=== PATIENT | female | born 1995 | race Caucasian/White ===

== ENCOUNTER → 2017-01-19 | Outpatient (REF) | payer OTHER | LOC: M LAB REF 17:04 | PROVIDERS: ATTEND Advanced Practice Midwife | DX: Z11.3 Encounter for screening for infections with a predominantly sexual mode of transmission (principal) ==

== ENCOUNTER → 2018-02-22 | Outpatient (REF) | payer OTHER ==
[2018-02-22 15:37] LABS: CHLAMYDIA DNA AMPLIFICATION NEGATIVE (NEGATIVE); GC DNA AMPLIFICATION NEGATIVE (NEGATIVE)
== END ==
LOC: M LAB REF 13:32
DX: Z12.4 Encounter for screening for malignant neoplasm of cervix (principal)

== ENCOUNTER → 2018-05-05 | Outpatient (REF) | payer OTHER | LOC: M LAB REF 17:06 | DX: R87.613 High grade squamous intraepithelial lesion on cytologic smear of cervix (HGSIL) (principal) | CPT/HCPCS: 88305 ==

== ENCOUNTER → 2018-10-10 | Outpatient (REF) | payer OTHER ==
[2018-10-10 20:33] LABS: CHLAMYDIA DNA AMPLIFICATION NEGATIVE (NEGATIVE); GC DNA AMPLIFICATION NEGATIVE (NEGATIVE)
== END ==
LOC: M LAB REF 17:04
PROVIDERS: ATTEND Specialist
DX: Z11.3 Encounter for screening for infections with a predominantly sexual mode of transmission (principal); R87.613 High grade squamous intraepithelial lesion on cytologic smear of cervix (HGSIL)

== ENCOUNTER → 2018-12-21 | Outpatient (REF) | payer OTHER ==
[2018-12-21 15:19] LABS: INFLUENZA A AMPLIFICATION NEGATIVE (NEGATIVE); INFLUENZA B AMPLIFICATION NEGATIVE (NEGATIVE)
== END ==
LOC: M LAB REF 14:17
PROVIDERS: ATTEND Physician Assistant Medical
DX: J11.1 Influenza due to unidentified influenza virus with other respiratory manifestations (principal)

== ENCOUNTER → 2019-07-17 | Outpatient (REF) | payer OTHER ==
[2019-07-17 19:51] LABS: CHLAMYDIA DNA AMPLIFICATION NEGATIVE (NEGATIVE); GC DNA AMPLIFICATION NEGATIVE (NEGATIVE)
== END ==
LOC: M LAB REF 17:14
PROVIDERS: ATTEND Specialist
DX: Z11.3 Encounter for screening for infections with a predominantly sexual mode of transmission (principal)

== ENCOUNTER → 2019-10-23 | Outpatient (REF) | payer OTHER ==
[2019-10-23 22:06] LABS: CHLAMYDIA DNA AMPLIFICATION NEGATIVE (NEGATIVE); GC DNA AMPLIFICATION NEGATIVE (NEGATIVE)
== END ==
LOC: M SFHCWAGY 16:48
PROVIDERS: ATTEND Specialist
DX: Z20.2 Contact with and (suspected) exposure to infections with a predominantly sexual mode of transmission (principal)

== ENCOUNTER → 2020-02-07 | Outpatient (REF) | payer OTHER ==
[2020-02-07 21:49] LABS: CHLAMYDIA DNA AMPLIFICATION POSITIVE (NEGATIVE); GC DNA AMPLIFICATION NEGATIVE (NEGATIVE)
== END ==
LOC: M LAB REF 16:02
PROVIDERS: ATTEND Physician Assistant
DX: Z20.2 Contact with and (suspected) exposure to infections with a predominantly sexual mode of transmission (principal)

== ENCOUNTER → 2020-03-05 | Outpatient (REF) | payer OTHER ==
[2020-03-07 17:35] LABS: HEPATITIS C VIRUS ABY INDEX 0.2 INDEX (<0.8); HIV 1&2 SCREEN CENTAUR NEGATIVE (NEGATIVE)
== END ==
LOC: M PLALAB 12:43
PROVIDERS: ATTEND Obstetrics & Gynecology
DX: Z36.89 Encounter for other specified antenatal screening (principal); Z82.0 Family history of epilepsy and other diseases of the nervous system; Z3A.01 Less than 8 weeks gestation of pregnancy

== ENCOUNTER → 2020-03-13 | Outpatient (REF) | payer OTHER ==
[2020-03-13 15:16] LABS: HEMATOCRIT 42.1 % (36.0-47.0); HEMOGLOBIN 14.3 g/dl (12.0-15.5); MEAN CORPUSCULAR HEMOGLOBIN 32.1 pg (27.0-33.0); MEAN CORPUSCULAR VOLUME 94.4 fl (80.0-96.0); PLATELET COUNT, AUTOMATED 228 10^3/uL (150-450); RED BLOOD COUNT 4.46 10^6/uL (4.00-5.40); WHITE BLOOD COUNT 10.7 10^3/uL (4.0-10.0)
[2020-03-13 17:09] LABS: CHLAMYDIA DNA AMPLIFICATION NEGATIVE (NEGATIVE); GC DNA AMPLIFICATION NEGATIVE (NEGATIVE)
== END ==
LOC: M PLALAB 14:49
PROVIDERS: ATTEND Obstetrics & Gynecology
DX: Z3A.01 Less than 8 weeks gestation of pregnancy (principal)

== ENCOUNTER → 2020-04-03 | Outpatient (CLI) | payer OTHER | LOC: M PLALAB 14:28 | PROVIDERS: ATTEND Advanced Practice Midwife | DX: Z34.81 Encounter for supervision of other normal pregnancy, first trimester (principal); Z3A.00 Weeks of gestation of pregnancy not specified ==

== ENCOUNTER → 2020-05-27 | Outpatient (CLI) | payer OTHER ==
--- NOTE | 2020-06-17 13:15 | REP ---
COMPLETE OBSTETRICAL ULTRASOUND CLINICAL: Anatomical assessment. TECHNIQUE: Transabdominal obstetrical ultrasound with color Doppler evaluation. FINDINGS: Ultrasound examination demonstrates single live intrauterine in transverse lie with head to the maternal left. Placenta is noted posteriorly and grade 0 without evidence for placenta previa or abruption. Amniotic fluid volume is normal. Cervix measures 3.1 cm in length and appears closed. heart rate 155 beats per minute. MEASUREMENTS: BPD 44 mm 19 weeks 4 days HC 163 mm 19 weeks 1 day AC 142 mm 19 weeks 4 days FL 29 mm 19 weeks 2 days HL 28 mm 19 weeks 3 days Estimated age by current measurements 19 weeks 3 days. Estimated weight 289 grams (34th percentile). Anatomical assessment demonstrates normal cisterna magna, cavum, thalamus, spine, stomach, kidneys/bladder, three-vessel cord/cord insertion, and extremities. Limited evaluation of the four chamber heart and cardiac ventricular outflow tracts noted. Facial features are limited in evaluation. A 9-mm right choroid plexus cyst is identified. IMPRESSION: * Single live intrauterine in transverse lie demonstrating appropriate estimated weight and growth. * Anatomical limitations as described above warrant reevaluation and follow-up. MTDD
== END ==
LOC: M WHC 08:52
PROVIDERS: ATTEND Advanced Practice Midwife
DX: Z34.82 Encounter for supervision of other normal pregnancy, second trimester (principal)

== ENCOUNTER → 2020-06-10 | Outpatient (CLI) | payer OTHER ==
--- NOTE | 2020-06-19 07:52 | REP ---
OBSTETRIC SONOGRAPHY HISTORY: Follow-up anatomy, supervision of ; heart and face. FINDINGS: Scanning through the gravid uterus demonstrates a viable single intrauterine gestation in transverse with head to the maternal right lie. motion was observed. The heart rate was recorded at 139 beats per minute. A posterior grade 1 placenta is seen without evidence of previa or abruption. Amniotic fluid is subjectively normal. Closed cervical length is 3.7 cm, viewed transabdominally. Four chamber heart, left ventricular outflow tract, and facial structures are visualized today and felt to be unremarkable. Right ventricular cardiac outflow tract view was less than optimally seen. There is a 3.6 mm choroid plexus cyst visible today. The following additional anatomic structures are again identified and felt to be unremarkable: cranium, cavum septum and falx cerebri, ventricles, cerebellum, left-sided stomach, kidneys, and three-vessel cord. BIOMETRY CHART: BPD 5.0 cm 21 weeks 1 day Head circumference 18.6 cm 20 weeks 6 days Abdominal circumference 16.9 cm 21 weeks 6 days Femur length 3.6 cm 21 weeks 3 days Humeral length 3.4 cm 21 weeks 5 days AC/HC ratio 1.10 Normal Cephalic index 0.075 Normal Estimated weight 434 grams, 0 pounds 15 ounces, 45th percentile for 21 weeks 4 days. IMPRESSION: Single live intrauterine at 21 weeks 3 days by todays composite criteria. Expected gestational age estimate based on prior sonography is 21 weeks 2 days. Estimated date of delivery (ELVIA) by prior sonography 10/19/2020. Four chamber heart, left ventricular (LV) outflow tract, and facial views are achieved today and are unremarkable. The right ventricular cardiac outflow tract view was less than optimally achieved. Small choroid plexus cyst again noted decreased in size. MTDD
== END ==
LOC: M WHC 08:51
PROVIDERS: ATTEND Advanced Practice Midwife
DX: Z34.02 Encounter for supervision of normal first pregnancy, second trimester (principal); Z3A.21 21 weeks gestation of pregnancy

== ENCOUNTER → 2020-06-24 | Outpatient (CLI) | payer OTHER | LOC: M WHC 10:29 | PROVIDERS: ATTEND Advanced Practice Midwife | DX: O99.332 Smoking (tobacco) complicating pregnancy, second trimester (principal); Z3A.00 Weeks of gestation of pregnancy not specified; F17.200 Nicotine dependence, unspecified, uncomplicated ==

== ENCOUNTER → 2020-06-27 | Outpatient (CLI) | payer OTHER ==
--- NOTE | 2020-07-02 14:03 | REP ---
OB ULTRASOUND HISTORY: Follow-up anatomy. TECHNIQUE: Real-time sonographic evaluation of the gravid uterus is performed. FINDINGS: There is single living intrauterine gestation. The estimated gestational age is reportedly 24 weeks 0 days, estimated date of confinement (EDC) 10/17/2020. Todays measurements indicate appropriate growth. BIOMETRY AND GROWTH: BPD 56 mm 23 weeks 1 day 27th percentile HC 216 mm 23 weeks 5 days 39th percentile AC 189 mm 23 weeks 4 days 42nd percentile Femur length 43 mm 23 weeks 6 days 48th percentile AC/HC ratio 1.14 Normal 1.02 to 1.21 Estimated weight 622 grams 29th percentile position breech. Placenta is posterior and grade 1 with no previa or abruption. Three vessel umbilical cord is noted. heart rate is 127 beats per minute. Cervix is closed and measured 3 cm in length. Amniotic fluid appears within normal limits for gestational age. On prior study, right ventricular outflow tract was not well visualized. On todays study, a normal conus of the right ventricular outflow tract is not visualized. This raises the possibility of a possible abnormality such as hypoplastic right heart. echocardiogram is recommended. MTDD
== END ==
LOC: M WHC 12:24
PROVIDERS: ATTEND Obstetrics & Gynecology
DX: O99.332 Smoking (tobacco) complicating pregnancy, second trimester (principal); F17.200 Nicotine dependence, unspecified, uncomplicated; O32.1XX0 Maternal care for breech presentation, not applicable or unspecified; Z3A.24 24 weeks gestation of pregnancy

== ENCOUNTER → 2020-07-11 | Outpatient (REF) | payer OTHER ==
[2020-07-11 15:06] LABS: HEMATOCRIT 36.2 % (36.0-47.0); HEMOGLOBIN 11.9 g/dl (12.0-15.5); MEAN CORPUSCULAR HEMOGLOBIN 31.8 pg (27.0-33.0); MEAN CORPUSCULAR HGB CONC 32.9 g/dl (32.0-36.5); MEAN CORPUSCULAR VOLUME 96.8 fl (80.0-96.0); PLATELET COUNT, AUTOMATED 190 10^3/uL (150-450); RED BLOOD COUNT 3.74 10^6/uL (4.00-5.40); WHITE BLOOD COUNT 11.2 10^3/uL (4.0-10.0)
== END ==
LOC: M PLALAB 11:38
PROVIDERS: ATTEND Advanced Practice Midwife
DX: Z3A.23 23 weeks gestation of pregnancy (principal)

== ENCOUNTER → 2020-09-22 | Outpatient (REF) | payer OTHER | LOC: M PLALAB 16:11 | PROVIDERS: ATTEND Obstetrics & Gynecology | DX: Z34.93 Encounter for supervision of normal pregnancy, unspecified, third trimester (principal); Z3A.36 36 weeks gestation of pregnancy ==

== ENCOUNTER 2020-10-13 19:46 | Inpatient (IN) | payer OTHER ==
[~2020-10-13] VITALS: Ht 162.6 cm; Wt 67.4 kg
[2020-10-13 20:14] VITALS: BP 126/73
[2020-10-13] MEDS ORDERED: LACTATED RINGER'S 1000 ML IV STA (20:49)
[2020-10-13] MEDS ORDERED: PRENTAB9 PO (20:50)
[2020-10-13] MEDS ORDERED: miSOPROStol 50MCG 1/2 TABLET PO SCH (21:00)
[2020-10-13 21:10] VITALS: BP 112/59
--- NOTE | 2020-10-13 22:29 | HPEPDOC ---
Obstetrical History & Physical General Date of Admission Oct 13, 2020 at 19:46 Primary Care Physician: CAROL MOULTON CNM History of Present Illness Sabine is a 24 y/o at 39.3 weeks, ELVIA 10/17/20 by 1st Trimester U/S on 03/05/20 at 7.5weeks. She started care at [facility] in the first trimester. She presented to L&D today with a C/O leaking of fluid that started at 1815. States "it just started while I was eating and then I went to the bathroom and it kept coming out, it was clear." Reports active movement, and irregular contr actions after being swept in the office today. Denies vaginal bleeding. complicated by nicotine dependence and right VOTs did not show a normal conus, echocardiogram was normal. 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 , Abnormal Pap (10/17/2018--SIMA III , presents on cauterized endocervical margin, LEEP done), History of STD (Chlamydia) Past Medical History Medical History Denies Surgical History: Dilatation and Curettage (), Tonsilectomy, Other (Tympanostomy, and LEEP 2019) Family History Significant Family History: Cancer (MGM-Breast Cancer), COPD (MGM), Other (MGF- Stroke; Mother-Rheumatoid Arthritis and Julien Sachs Carrier) Social History Marital Status: Family situation: Spouse/partner home Psychosocial History: No pertinent psych hx * Smoker: current smoker (0.5-1 PPD) Alcohol: Denies Drugs: denies Imunizations Tdap status: declined Influenza Status: declined Allergies Coded Allergies: No Known Drug Allergies (Verified Allergy, Unknown, 10/13/20) Medications Scheduled No.137/Iron/Folic Acd ( Vitamin Tablet) 1 Each Tablet, 1 TAB PO DAILY Physical Examination Physical Examination GENERAL: Alert and oriented times three. ABDOMEN: Gravid and non-tender to touch. FETUS: Is vertex (VTX) by sterile vaginal examination (SVE), fetus is vertex (VTX). EFW by Tommie. 6-6.5lbs by Tommie'claudio. HEART RATE: Regular rate and rhythm. LUNGS: Clear to auscultation (CTA) bilaterally. EXTREMITIES: No edema. No clonus. Deep tendon reflexes (DTRs) + 2. SPECULUM: Vagina pink, well rugated. Moderate amount of cervical mucous and brown blood in vault. Cervix pink, appears open, no fluid noted from os on valsalva. Nitrazine equivocal. Fern unable to determine due to large amount of cells on slide. BEDSIDE U/S: CATHRYN 5cm., vertex, active movement. Laboratory Data 24H LABS Laboratory Tests 2 10/13/20 20:00: Serology Scanned Report Hepatitis B Testing Urine Culture: No Growth Pertinent Laboratoy Data Blood Type: B+ RBC Antibody Screen: Negative HIV: Negative Hepatitis B: Negative Hepatitis C: Negative Rapid Plasma Reagin: Nonreactive Rubella: Immune Chlamydia/Gonorrhea: Negative Group B Streptococcus: Negative Glucose Tolerance Test: 112 Diag/Inter Therapy NIPT - Low Risk Female Carrier screening done, she is not a carrier for Julien Sachs Steroid Therapy Steroid Therapy: No Vaginal Examination Dilation: 1cm Effacement: 80% Station: -2 Cervical Consistency: Medium Cervical Position: Posterior Presentation: Cephalic presentation Assessment Heart Rate (FHR): 125 Variability: Moderate Accelerations: Positive Decelerations: None Tocometer Contractions: Yes Frequency: irregular, greater than 10 min/apart Duration: greater than 60 seconds Strength: palpated as mild, resting tone palp/soft Multi-drug resistant Organism: No history of MDRO Assessment/Plan Assessment IUP at 39.3 weeks Presume Postively SROM at 1815 Category 1 FHT GBS Negative Plan Admit and orient to Labor and Delivery. Activity as Tolerated. Diet: Regular with Cytotec, Clear liquids with Pitocin. Group B Streptococcus (GBS) negative. Labs and intravenous (IV) per unit protocol. Counseled on Cytotec, cook's catheter, Pitocin and induction of labor (IOL). Lactated Ringers (LR): Bolus 800 mL prior to epidural, then at 125 mL/hr. Start Cytotec 50mcg PO. Anesthesia consult for epidural placement per her desire. Anticipate normal spontaneous delivery (). C-S as appropriate. CAROL MOULTON CNM Oct 13, 2020 21:04
[2020-10-13 23:58] VITALS: BP 127/82
[2020-10-14] VITALS (41 sets, daily range): BP systolic 82–146; BP diastolic 50–83
[2020-10-14 00:17] LABS: HEMOGLOBIN 13.5 g/dl (12.0-15.5); MEAN CORPUSCULAR HEMOGLOBIN 32.1 pg (27.0-33.0); MEAN CORPUSCULAR HGB CONC 33.8 g/dl (32.0-36.5); PLATELET COUNT, AUTOMATED 175 10^3/uL (150-450); RED BLOOD COUNT 4.21 10^6/uL (4.00-5.40); WHITE BLOOD COUNT 13.8 10^3/uL (4.0-10.0)
[2020-10-14] MEDS ORDERED: PROMETHAZINE INJ 25 MG/ML VIAL (J2550) IV ONE (01:45)
[2020-10-14] MEDS ORDERED: OXYTOCIN DRIP 30 UNITS in IV 1 EA IV SCH ×2 (01:45→09:06)
[2020-10-14] MEDS ORDERED: LR 1,000 ML IV SCH (01:45)
[2020-10-14] MEDS ORDERED: BUTORPHANOL 2 MG/ML INJ (J0595) IV ONE (01:45)
[2020-10-14] MEDS ORDERED: FENTANYL 2MCG/ML ROPIVACAINE 0.2% IN 0.9% NACL 100ML IVBAG As Ordered ONE (04:38)
[2020-10-14] MEDS ORDERED: ONDANSETRON 4MG/2ML VIAL IV PRN (05:45)
[2020-10-14] MEDS ORDERED: diphenhydrAMINE 50MG/ML VIAL (J1200) IV PRN (05:45)
[2020-10-14] MEDS ORDERED: LACTATED RINGER'S 1000 ML IV PRN (05:45)
[2020-10-14] MEDS ORDERED: EPIDURAL COMMENT XX SCH (05:45)
[2020-10-14] MEDS ORDERED: NALOXONE INJ 0.4MG/1ML VIAL (J2310 PER 1MG) IV PRN (05:45)
[2020-10-14] MEDS ORDERED: EPIDURAL/PCA KEYS XX PRN (05:45)
[2020-10-14] MEDS ORDERED: ePHEDrine SULFATE 25 MG/5 ML(5MG/ML) SYRINGE IV PRN (05:45)
[2020-10-14] MEDS ORDERED: REFRIGERATOR IV KEYS XX PRN (05:45)
[2020-10-14] MEDS ORDERED: FENTANYL/ROPIVACAINE/NACL BAG 100 ML EPIDURAL SCH (05:45)
--- NOTE | 2020-10-14 08:31 | DNPDOC ---
[facility] Delivery Note Delivery Note DATE OF DELIVERY: 10/14/2020 @ 0750 PREDELIVERY DIAGNOSIS: 39-4/7 weeks' gestation and SROM. POST DELIVERY DIAGNOSIS: Delivered. PROCEDURE: Spontaneous vaginal delivery. PROVIDER: Carol Pozo CNM, CASH and CAL Persaud ANESTHESIA: Epidural. ESTIMATED BLOOD LOSS: 150 mL. FINDINGS: 5 pound 13 ounce, 2640g Female , Score 9/9, nuchal cord x1 around neck and around body x1, compound left hand, calcifications of placenta, marginal cord insertion. DELIVERY SUMMARY: Sabine is a 24-year-old 1 now para 1-0-0-1 who was admitted to labor and delivery for SROM at 1815 on 10/13/20. Cytotec x1, then Pitocin started. Stadol and Phenergan at 0210. Epidural for pain management at 0520. Full dilatation at 0709. head delivered OA with restitution to ROT. Compound left hand released followed by anterior shoulder with gentle downward traction, and corpus followed with ease. Cord unraveled from neck and body and infant placed skin to skin on maternal abdomen, vigorous and pink. Delayed cord clamping x1 minute, clamped x2, and cut by FOB. Cord blood collected. Intact placenta delivered via virgilio mechanism at 0755. 3 Vessel Cord noted. Fundal massage and IV Pitocin bolus started. Fundus firmed to U, small flow. Perineum, cervix, and vagina examined for lacerations. Bilateral labial lacerations repaired with 4-0 Vicryl Rapide. Mother plans to breast feed and name her "Teri". Mother and left in stable condition. CAROL POZO CNM Oct 14, 2020 08:31
[2020-10-14] MEDS ORDERED: DOCUSATE SODIUM 100MG CAPSULE PO PRN (09:15)
[2020-10-14] MEDS ORDERED: ACETAMINOPHEN TAB 650MG DOSE (2X325MG) PO PRN (09:15)
[2020-10-14] MEDS ORDERED: IBUPROFEN 600MG TAB PO PRN (09:15)
[2020-10-14] MEDS ORDERED: ACETAMINOPHEN 500 MG TAB PO PRN (09:15)
[2020-10-14] MEDS ORDERED: RHOGAM 300 MCG (1500 IU) INJ (J2790) IM SCH (09:15)
[2020-10-14] MEDS ORDERED: BENZOCAINE 20% HEMORRHOIDAL OINTMENT 28GM TUBE TOP PRN (09:15)
[2020-10-14] MEDS ORDERED: METHYLERGONOVINE MALEATE 0.2 MG TAB PO PRN (09:15)
[2020-10-14] MEDS ORDERED: ANUSOL HC CREAM 30GM TOP PRN (09:15)
[2020-10-14] MEDS ORDERED: MEASLES,MUMPS,RUBELLA VACCINE INJ (MMR-II) (90707) SC SCH (09:15)
[2020-10-14] MEDS ORDERED: SLF 3 ML SYR IV PRN (10:15)
[2020-10-14] MEDS: PRENATAL VITAMINS CHEWABLE TABLET PO SCH (10:15)
[2020-10-14] MEDS: IBUPROFEN 800 MG TAB PO PRN (16:39)
[2020-10-14] MEDS: SLF 3 ML SYR IV SCH (21:14)
[2020-10-15] MEDS: IBUPROFEN 800 MG TAB PO PRN ×2 (01:10→09:11)
[2020-10-15 06:00] VITALS: BP 126/64
[2020-10-15] MEDS: SLF 3 ML SYR IV SCH (06:00)
--- NOTE | 2020-10-15 06:42 | IPNPDOC ---
Progress Note Date of Service: Oct 15, 2020 Day#: 1 Progress Note SUBJECT: Doing well without complaints. Ambulating, voiding and pain is well-c ontrolled. Reports minimal lochia. OBJECTIVE: VITAL SIGNS: Within normal limits, afebrile. Alert and oriented times three. Abdomen: Fundus firm at U-2. Soft, NTTP. Ext: neg calf tenderness. ASSESSMENT: day #1 status post . Recovering in stable condition. PLAN: 1. Continue routine care 2. Discharge plans for tomorrow VS, I&O, 24H, Fishbone Vital Signs/I&O Vital Signs Date Time Temp Pulse Resp B/P (MAP) Pulse Ox O2 Delivery O2 Flow Rate FiO2 10/15/20 06:00 98.8 79 18 126/64 (84) 99 Room Air I&O- Last 24 Hours up to 6 AM 10/15/20 06:00 Intake Total 1780.0 ml Output Total 675 ml Balance 1105.0 ml PINA AVILA MD. Oct 15, 2020 06:42
[2020-10-15] MEDS: PRENATAL VITAMINS CHEWABLE TABLET PO SCH (09:11)
== END 2020-10-15 17:15 | disposition home or self-care (01) | DRG 560 ==
LOC: M LDI 19:46 → M OBS 10-14 10:45
PROVIDERS: ADMIT Advanced Practice Midwife; ATTEND Advanced Practice Midwife
PROC: 3E0P7GC Introduction of Other Therapeutic Substance into Female Reproductive, Via Natural or Artificial Opening (ICD-10-PCS; 2020-10-13)
PROC: 10E0XZZ Delivery of Products of Conception, External Approach (ICD-10-PCS; principal; 2020-10-14)
PROC: 0HQ9XZZ Repair Perineum Skin, External Approach (ICD-10-PCS; 2020-10-14)
DX: O69.81X0 Labor and delivery complicated by cord around neck, without compression, not applicable or unspecified (principal); O32.6XX0 Maternal care for compound presentation, not applicable or unspecified; O70.0 First degree perineal laceration during delivery; Z37.0 Single live birth; Z3A.39 39 weeks gestation of pregnancy; O43.893 Other placental disorders, third trimester; O69.82X0 Labor and delivery complicated by other cord entanglement, without compression, not applicable or unspecified

== ENCOUNTER → 2021-06-11 | Outpatient (REF) | payer OTHER ==
[~2021-06-11] MED LIST: PRENTAB9 PO
== END ==
LOC: M SFHCWAGY 19:11
PROVIDERS: ATTEND Advanced Practice Midwife
DX: Z01.419 Encounter for gynecological examination (general) (routine) without abnormal findings (principal); Z12.4 Encounter for screening for malignant neoplasm of cervix

== ENCOUNTER 2022-08-06 22:05 | Emergency (ER) | payer OTHER ==
[~2022-08-06] VITALS: Ht 162.6 cm; Wt 52.3 kg
[2022-08-06 22:09] VITALS: BP 122/80
[2022-08-07 01:07] LABS: BASO % 0.4 % (0.0-1.0); EOS # 0.3 10^3/uL (0.0-0.5); EOS % 2.7 % (0.0-3.0); HEMATOCRIT 37.4 % (36.0-47.0); HEMOGLOBIN 12.6 g/dl (12.0-15.5); LYMPH # 3.9 10^3/uL (1.5-5.0); LYMPH % 40.2 % (24.0-44.0); MEAN CORPUSCULAR HEMOGLOBIN 31.6 pg (27.0-33.0); MEAN CORPUSCULAR HGB CONC 33.7 g/dl (32.0-36.5); MEAN CORPUSCULAR VOLUME 93.7 fl (80.0-96.0); MONO # 0.8 10^3/uL (0.0-0.8); MONO % 8.3 % (2.0-8.0); NEUTROPHILS # 4.7 10^3/uL (1.5-8.5); NEUTROPHILS % 48.3 % (36.0-66.0); PLATELET COUNT, AUTOMATED 291 10^3/uL (150-450); RED BLOOD COUNT 3.99 10^6/uL (4.00-5.40); WHITE BLOOD COUNT 9.8 10^3/uL (4.0-10.0)
== END 2022-08-07 01:59 | disposition home or self-care (01) ==
LOC: M ED 22:05
DX: O20.0 Threatened abortion (principal); Z3A.00 Weeks of gestation of pregnancy not specified; Z79.899 Other long term (current) drug therapy

== ENCOUNTER → 2022-08-09 | Outpatient (CLI) | payer OTHER | LOC: M LAB 13:19 | PROVIDERS: ATTEND Physician Assistant | DX: O20.0 Threatened abortion (principal) ==

== ENCOUNTER → 2023-10-06 | Outpatient (REF) | payer OTHER | LOC: M SFHCWAGY 17:07 | PROVIDERS: ATTEND Nurse Practitioner Family | DX: Z11.3 Encounter for screening for infections with a predominantly sexual mode of transmission (principal) ==

== ENCOUNTER → 2025-06-05 | Outpatient (REF) | payer BC, OTHER ==
[2025-06-05 16:54] LABS: Trichomonas vaginalis (AMP) NOT DETECTED (NEGATIVE)
[2025-06-05 17:18] LABS: GC DNA AMPLIFICATION NEGATIVE (NEGATIVE)
[2025-06-07 15:27] LABS: HPV APTIMA Not Detected (Not Detected)
== END ==
LOC: M SFHCWAGY 15:11
PROVIDERS: ATTEND Nurse Practitioner Family
DX: R87.610 Atypical squamous cells of undetermined significance on cytologic smear of cervix (ASC-US) (principal); R39.15 Urgency of urination; Z11.51 Encounter for screening for human papillomavirus (HPV)
CPT/HCPCS: 87070; 87077; 87086; 87186; 87624; 87661; 87810; 87850; G0123

== ENCOUNTER → 2025-08-12 | Outpatient (REF) | LOC: M EMP 08:29 | PROVIDERS: ATTEND Family Medicine | DX: Z01.89 Encounter for other specified special examinations (principal) ==